=== PATIENT | male | born 1980 | race Caucasian/White ===

== ENCOUNTER 2017-10-20 07:26 | Emergency (ER) | payer OTHER, MEDICAID ==
[~2017-10-20] VITALS: Ht 182.9 cm; Wt 86.2 kg
[2017-10-20] MEDS ORDERED: IV NORMAL SALINE 1,000ML 1,000 ML IV ONE (08:00)
[2017-10-20 08:18] VITALS: BP 123/84
--- NOTE | 2017-10-20 08:19 | ED.ADGEN ---
Adult General HPI HPI Patient is a 37 year old male who presents with feeling sleepy and possible syncopal episode. Patient states he was up all night because his mother was ill. She was treated in this ER and transferred to another hospital. Patient has been helping care for her over the last several days since she was discharged from an acute rehab facility and endorses that he feels dehydrated and exhausted. This am, he was packing her belongings to take to her in the hospital. He states he "passed out" on the bed and slept for a couple hours. Unclear if he had syncope or not but did awaken described to be "drenched in sweat." Currently denies acute complaints. No chest pain, palpitations. No nausea or vomiting. No recent illness or fever. Patient does have hx of valve replacement in the past. Review of Systems Review of Systems Constitutional: Denies fever or chills Eyes: Denies change in visual acuity HENT: Denies nasal congestion Respiratory: Denies cough or shortness of breath Cardiovascular: No additional information not addressed in HPI GI: Denies abdominal pain, nausea : Denies dysuria Musculoskeletal: Denies back pain Integument: Denies rash or skin lesions Neurologic: Denies headache Endocrine: Denies polyuria All other systems were reviewed and found to be within normal limits, except as documented in this note. Current Medications Current Medications Current Medications Medications (Trade) Dose Ordered Sig/Nyla Start Time Stop Time Status Last Admin Dose Admin Potassium Chloride (KCl Oral Soln) 40 meq 1X ONCE 10/20/17 09:00 10/20/17 09:01 DC 10/20/17 09:04 40 MEQ Sodium Chloride 1,000 ml @ 1,000 mls/hr 1X ONCE 10/20/17 08:00 10/20/17 09:00 DC 10/20/17 08:00 1,000 MLS/HR Allergies Allergies Allergies Coded Allergies Type Severity Reaction Last Updated Verified Penicillins Allergy Unknown 10/20/17 Yes Physical Exam Physical Exam Constitutional: Well developed, well nourished, no acute distress, non-toxic appearance HENT: Normocephalic, atraumatic, bilateral external ears normal, oropharynx moist Eyes: PERRLA, EOMI, conjunctiva normal Neck: Normal range of motion, no tenderness Cardiovascular:Heart rate regular rhythm, 2/6 SHALINI Lungs & Thorax: Bilateral breath sounds clear to auscultation Abdomen: Bowel sounds normal, soft, no tenderness, colostomy bag in place with brown stool present. Skin: Warm, dry, no erythema Back: No tenderness Extremities: No tenderness, no edema Neurologic: Alert and oriented X 3, CN II-XII intact bilaterally. Normal, steady gait Psychologic: Affect normal Current Patient Data Vital Signs Vital Signs Date Time Temp Pulse Resp B/P (MAP) Pulse Ox O2 Delivery O2 Flow Rate FiO2 10/20/17 08:18 98.2 80 18 100 Room Air Lab Results Laboratory Tests Test 10/20/17 08:17 White Blood Count 8.9 x10^3/uL (4.0-11.0) Red Blood Count 4.92 x10^6/uL (4.30-5.70) Hemoglobin 14.7 g/dL (13.0-17.5) Hematocrit 42.9 % (39.0-53.0) Mean Corpuscular Volume 87 fL (79-100) Mean Corpuscular Hemoglobin 30 pg (25-35) Mean Corpuscular Hemoglobin Concent 34 g/dL (31-37) Red Cell Distribution Width 13.7 % (11.5-14.5) Platelet Count 252 x10^3/uL (140-400) Neutrophils (%) (Auto) 72 % (31-73) Lymphocytes (%) (Auto) 20 % (24-48) L Monocytes (%) (Auto) 7 % (0-9) Eosinophils (%) (Auto) 1 % (0-3) Basophils (%) (Auto) 1 % (0-3) Neutrophils # (Auto) 6.3 x10^3uL (1.8-7.7) Lymphocytes # (Auto) 1.7 x10^3/uL (1.0-4.8) Monocytes # (Auto) 0.6 x10^3/uL (0.0-1.1) Eosinophils # (Auto) 0.1 x10^3/uL (0.0-0.7) Basophils # (Auto) 0.1 x10^3/uL (0.0-0.2) Sodium Level 137 mmol/L (136-145) Potassium Level 3.2 mmol/L (3.5-5.1) L Chloride Level 104 mmol/L (98-107) Carbon Dioxide Level 20 mmol/L (21-32) L Anion Gap 13 (6-14) Blood Urea Nitrogen 13 mg/dL (8-26) Creatinine 1.1 mg/dL (0.7-1.3) Estimated GFR (Cockcroft-Gault) 74.5 Glucose Level 111 mg/dL (70-99) H Calcium Level 8.9 mg/dL (8.5-10.1) Troponin I Quantitative < 0.017 ng/mL (0-0.055) EKG EKG Ventricular paced rhythm Radiology/Procedures Radiology/Procedures [] Course & Med Decision Making Course & Med Decision Making Pertinent Labs and Imaging studies reviewed. (See chart for details) Patient is seen and examined. No acute distress. Overall, baseline exam for this patient. 09:15: Currently feeling improved. Noted to have mildly decreased potassium and oral replacement is provided in the ER. He was given one liter NS also. No elevated WBC. Labs otherwise normal. Trop normal. Plan is for discharge to home and he is agreeable. Return precautions discussed and he will come back to the ER for any new or worsening symptoms. Final Impression Final Impression Exhaustion Hypokalemia Dehydration Huong Disclaimer Huong Disclaimer This electronic medical record was generated, in whole or in part, using a voice recognition dictation system. MARINA WALSH DO Oct 20, 2017 08:19
--- NOTE | 2017-10-20 08:21 | EKG ---
[address] [address] Test Date: 2017-10-20 Test Time: 08:19:14 Pat Name: JUSTIN DEGROOT Department: Room: Gender: M [employer] Maker [employer]ulator: : 1980 Requested By: MARINA WALSH Order Number: [id number] Reading MD: Measurements Intervals [place] Rate: 75 P: 0 LA: 152 QRS: -56 QRSD: 182 T: 116 QT: 446 QTc: 501 Interpretive Statements SINUS RHYTHM ABNORMAL LEFT AXIS DEVIATION NON SPECIFIC INTRAVENTRICULAR BLOCK QRS(T) CONTOUR ABNORMALITY CONSIDER ANTEROLATERAL MYOCARDIAL DAMAGE ABNORMAL ECG RI6.01 Unconfirmed report No previous ECG available for comparison
[2017-10-20 08:30] LABS: BASO # 0.1 x10^3/uL (0.0-0.2); BASO % 1 % (0-3); EOS # 0.1 x10^3/uL (0.0-0.7); EOS % 1 % (0-3); HEMATOCRIT 42.9 % (39.0-53.0); HEMOGLOBIN 14.7 g/dL (13.0-17.5); LYMPH # 1.7 x10^3/uL (1.0-4.8); LYMPH % 20 % (24-48); MEAN CORPUSCULAR HEMOGLOBIN 30 pg (25-35); MEAN CORPUSCULAR HGB CONC 34 g/dL (31-37); MEAN CORPUSCULAR VOLUME 87 fL (79-100); MONO # 0.6 x10^3/uL (0.0-1.1); MONO % 7 % (0-9); NEUT # 6.3 x10^3uL (1.8-7.7); NEUT % 72 % (31-73); PLATELET COUNT 252 x10^3/uL (140-400); RED BLOOD COUNT 4.92 x10^6/uL (4.30-5.70); RED CELL DISTRIBUTION WIDTH 13.7 % (11.5-14.5); WHITE BLOOD COUNT 8.9 x10^3/uL (4.0-11.0)
[2017-10-20 08:41] LABS: CALCIUM 8.9 mg/dL (8.5-10.1); CREATININE 1.1 mg/dL (0.7-1.3); GFR 74.5; POTASSIUM 3.2 mmol/L (3.5-5.1)
[2017-10-20] MEDS ORDERED: POTASSIUM CHLORIDE 20 MEQ/15 ML ORAL LIQUID. PO ONE (09:00)
== END 2017-10-20 09:28 | disposition home or self-care (01) ==
LOC: ER 07:26
DX: E86.0 Dehydration (principal); E87.6 Hypokalemia; R53.83 Other fatigue; Z88.0 Allergy status to penicillin
CPT/HCPCS: 36415; 80048; 84484; 85025; 93005; 96360; 99285-25; J7030

== ENCOUNTER → 2018-07-05 | Outpatient (CLI) | payer MEDICARE, MEDICAID ==
--- NOTE | 2018-07-05 12:42 | RAD ---
CHEST PA LATERAL Clinical indications: POSSIBLE PACEMAKER LEAD FRACTURE . History of heart disease. COMPARISON: June 11, 2008. Findings: Bipolar atrioventricular pacemaker is again evident and the leads appear intact and are unchanged in position. A sternotomy is again evident. Cardiac valve prosthesis is again evident. Heart size is mildly enlarged. Mediastinum and pulmonary vasculature and both reena are unremarkable. Chronic right lateral pleural thickening is seen. No acute lung infiltrate or pleural effusion or pleural edema or pneumothorax or lung mass is seen. The osseous structures are intact. IMPRESSION: Mild cardiomegaly. No acute lung infiltrate or pulmonary edema. Electronically signed by: Humphrey Albright MD (07/05/2018 12:40 PM) [id number]
== END | disposition home or self-care (01) ==
LOC: RAD 11:21
PROVIDERS: ATTEND Nurse Practitioner
DX: I51.7 Cardiomegaly (principal); J92.9 Pleural plaque without asbestos; Z95.0 Presence of cardiac pacemaker
CPT/HCPCS: 71046